=== PATIENT | female | born 1950 | race Caucasian/White ===

== ENCOUNTER 2017-09-23 12:35 | Emergency (ER) | payer MEDICARE, MEDICAID ==
[~2017-09-23] VITALS: Ht 170.2 cm; Wt 108.2 kg
[2017-09-23 13:13] VITALS: BP 153/95
== END 2017-09-23 13:14 | disposition home or self-care (01) ==
LOC: ER 12:36
DX: M19.072 Primary osteoarthritis, left ankle and foot (principal); Z88.5 Allergy status to narcotic agent
CPT/HCPCS: 73610; 99284

== ENCOUNTER 2017-12-15 14:16 | Emergency (ER) | payer MEDICARE, MEDICAID ==
[~2017-12-15] VITALS: Ht 170.2 cm; Wt 105.0 kg
[2017-12-15 14:50] LABS: BASOPHILS % (AUTO) 0.2 % (0-1); EOSINOPHILS # (AUTO) 0.1 X10'3 (0-0.9); EOSINOPHILS % (AUTO) 1.5 % (0-6); HEMATOCRIT 40.2 % (35.0-45.0); HEMOGLOBIN 13.9 g/dl (12.0-16.0); LYMPHOCYTES # (AUTO) 1.8 X10'3 (1.1-4.8); LYMPHOCYTES % (AUTO) 32.2 % (21-51); MEAN CORPUSCULAR HEMOGLOBIN 31.9 PG (27.0-31.0); MEAN CORPUSCULAR HGB CONC 34.6 % (33.0-36.5); MEAN CORPUSCULAR VOLUME 92.1 FL (78-98); MEAN PLATELET VOLUME 6.7 FL (7.4-10.4); MONOCYTES # (AUTO) 0.3 X10'3 (0-0.9); MONOCYTES % (AUTO) 6.1 % (2-12); NEUTROPHILS # (AUTO) 3.4 X10'3 (1.8-7.7); PLATELET COUNT 278 X10'3 (140-440); RED BLOOD COUNT 4.36 X10'6 (4.20-5.60); RED CELL DISTRIBUTION WIDTH 14.3 % (11.5-14.5); WHITE BLOOD COUNT 5.6 X10'3 (4.5-11.0)
[2017-12-15 15:00] LABS: PARTIAL THROMBOPLASTIN TIME 25 SECONDS (22-32); PROTHROMBIN TIME 9.9 SECONDS (9.0-12.0)
[2017-12-15 15:06] LABS: ALANINE AMINOTRANSFERASE 33 U/L (12-78); ALKALINE PHOSPHATASE 69 IU/L (46-116); ANION GAP 11 (8-16); ASPARTATE AMINO TRANSFERASE 18 U/L (10-37); BILIRUBIN,TOTAL 0.7 MG/DL (0.1-1.0); BLOOD UREA NITROGEN 13 MG/DL (7-18); BUN/CREATININE RATIO 17.1 (6.6-38.0); CALCIUM 9.4 MG/DL (8.5-10.1); CHLORIDE 104 MMOL/L (99-107); CREATININE 0.76 MG/DL (0.40-0.90); GLUCOSE 94 MG/DL (70-104); POTASSIUM 3.5 MMOL/L (3.5-5.1); SODIUM 141 MMOL/L (135-145); TOTAL CARBON DIOXIDE 25.7 MMOL/L (24-32); TOTAL PROTEIN 7.9 G/DL (6.4-8.2); eGFR 76 ML/MIN
[2017-12-15] MEDS ORDERED: metoprolol succinate 25mg (24-HOUR) SR. Tablet PO STA (15:42)
[2017-12-15] MEDS ORDERED: normal saline 1000ml 1,000 ML IV SCH (15:45)
[2017-12-15] MEDS ORDERED: diltiazem 5mg/ml 5ml inj. IV ONE (15:45)
[2017-12-15] MEDS ORDERED: metoprolol tartrate 1mg/ml inj IV ONE ×2 (16:50→17:40)
[2017-12-15] MEDS ORDERED: DILTIAZEM IV ONE ×2 (16:55→17:45)
[2017-12-15 18:10] VITALS: BP 126/71
== END 2017-12-15 18:11 | disposition home or self-care (01) ==
LOC: ER 14:17
DX: I48.91 Unspecified atrial fibrillation (principal); I11.0 Hypertensive heart disease with heart failure; I50.9 Heart failure, unspecified; I25.10 Atherosclerotic heart disease of native coronary artery without angina pectoris; I25.2 Old myocardial infarction; J45.909 Unspecified asthma, uncomplicated; M19.90 Unspecified osteoarthritis, unspecified site; Z86.73 Personal history of transient ischemic attack (TIA), and cerebral infarction without residual deficits; Z88.5 Allergy status to narcotic agent; Z87.891 Personal history of nicotine dependence
CPT/HCPCS: 36415; 71045; 80053; 83880; 84484; 85025; 85610; 85730; 93005; 96361; 96374; 99285; J7030

== ENCOUNTER 2018-12-25 11:10 | Inpatient (IN) | payer MEDICARE, MEDICAID ==
[~2018-12-25] VITALS: Ht 167.6 cm; Wt 109.0 kg
--- NOTE | 2018-12-25 11:19 | NUR ---
PT TO CT.
--- NOTE | 2018-12-25 11:34 | NUR ---
PER DR. HERRON STROKE ALERT LEVEL 2.
--- NOTE | 2018-12-25 11:34 | NUR ---
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
--- NOTE | 2018-12-25 11:46 | NUR ---
PATIENT BACK IN ROOM.
--- NOTE | 2018-12-25 12:08 | NUR ---
tele neuro consult per Dr. mendoza.Carmen guajardo.
[2018-12-25 12:12] LABS: BASOPHILS % (AUTO) 0.5 % (0-1); EOSINOPHILS % (AUTO) 0.5 % (0-6); HEMATOCRIT 39.5 % (35.0-45.0); HEMOGLOBIN 13.4 g/dl (12.0-16.0); LYMPHOCYTES # (AUTO) 1.3 X10'3 (1.1-4.8); LYMPHOCYTES % (AUTO) 26.9 % (21-51); MEAN CORPUSCULAR HEMOGLOBIN 31.8 PG (27.0-31.0); MEAN CORPUSCULAR HGB CONC 33.9 g/dL (33.0-36.5); MEAN CORPUSCULAR VOLUME 93.9 FL (78-98); MEAN PLATELET VOLUME 6.9 FL (7.4-10.4); MONOCYTES # (AUTO) 0.4 X10'3 (0-0.9); MONOCYTES % (AUTO) 8.2 % (2-12); NEUTROPHILS # (AUTO) 3.1 X10'3 (1.8-7.7); NEUTROPHILS % (AUTO) 63.9 % (42-75); PLATELET COUNT 287 X10'3 (140-440); RED BLOOD COUNT 4.21 X10'6 (4.20-5.60); RED CELL DISTRIBUTION WIDTH 13.6 % (11.5-14.5); WHITE BLOOD COUNT 4.9 X10'3 (4.5-11.0)
[2018-12-25] MEDS ORDERED: CARB200T8 PO (12:13)
[2018-12-25] MEDS ORDERED: PRAV40TA3 PO (12:13)
[2018-12-25] MEDS ORDERED: BACL20TA PO (12:13)
[2018-12-25] MEDS ORDERED: DIVA-76 PO ×2 (12:13)
[2018-12-25] MEDS ORDERED: METO50TA16 PO (12:13)
[2018-12-25] MEDS ORDERED: ISOS60TA4 PO (12:13)
[2018-12-25] MEDS ORDERED: POTA8TAB8 PO (12:13)
[2018-12-25] MEDS ORDERED: APIX5TAB3 PO (12:13)
[2018-12-25 12:16] LABS: PARTIAL THROMBOPLASTIN TIME 26 SECONDS (22-32)
[2018-12-25 12:22] LABS: ALANINE AMINOTRANSFERASE 23 U/L (12-78); ALBUMIN 3.6 G/DL (3.4-5.0); ALKALINE PHOSPHATASE 71 IU/L (46-116); ANION GAP 9 (8-16); ASPARTATE AMINO TRANSFERASE 13 U/L (10-37); BILIRUBIN,TOTAL 0.7 MG/DL (0.1-1.0); BLOOD UREA NITROGEN 19 MG/DL (7-18); BUN/CREATININE RATIO 27.1 (6.6-38.0); CALCIUM 9.4 MG/DL (8.5-10.1); CHLORIDE 107 MMOL/L (99-107); GLUCOSE 99 MG/DL (70-104); POTASSIUM 3.3 MMOL/L (3.5-5.1); SODIUM 141 MMOL/L (135-145); TOTAL CARBON DIOXIDE 25.3 MMOL/L (24-32); TOTAL PROTEIN 7.2 G/DL (6.4-8.2); eGFR 83 ML/MIN
[2018-12-25] MEDS ORDERED: CARB200T PO (12:23)
[2018-12-25 12:30] LABS: ETHANOL < 0.010 GM/DL (0.0-0.010); MAGNESIUM 1.9 MG/DL (1.5-2.4); PHOSPHORUS 3.1 MG/DL (2.3-4.5); TROPONIN I < 0.04 NG/ML (0.0-0.05)
[2018-12-25] MEDS ORDERED: iohexol 350MG/ML 100ml bottle IV ONE (12:36)
[2018-12-25 13:09] LABS: URINE AMPHETAMINE SCREEN NEGATIVE (Neg); URINE BARBITUATE SCREEN NEGATIVE (Neg); URINE BENZODIAZEPINES SCREEN NEGATIVE (Neg); URINE CANNABINOID SCREEN NEGATIVE (Neg); URINE COCAINE SCREEN NEGATIVE (Neg); URINE METHADONE SCREEN NEGATIVE (Neg); URINE OPIATE SCREEN NEGATIVE (Neg); URINE PHENCYCLIDINE SCREEN NEGATIVE (Neg)
[2018-12-25] MEDS ORDERED: potassium Cl 40MEQ/NS 500ml 500 ML IV PRN ×2 (14:00)
[2018-12-25] MEDS ORDERED: ondansetron/PF 4mg/2ml inj IV PRN (14:00)
[2018-12-25] MEDS ORDERED: morphine 2 MG/ML inj. syringe IV PRN ×2 (14:00)
[2018-12-25] MEDS ORDERED: potassium Cl 20 mEq SR tablet PO PRN (14:00)
[2018-12-25] MEDS ORDERED: magnesium Cl slow-release 64mg tablet PO PRN (14:00)
[2018-12-25] MEDS ORDERED: mag hydrox/Alum hydrox/simeth 30ml oral suspension PO PRN (14:00)
[2018-12-25] MEDS ORDERED: magnesium 4gm in 100ml NS 100 ML IV PRN (14:00)
[2018-12-25] MEDS ORDERED: acetaminophen 325mg tablet PO PRN ×2 (14:00)
[2018-12-25] MEDS ORDERED: magnesium 2GM in 50ml NS 50 ML IV PRN (14:00)
[2018-12-25] MEDS ORDERED: HYDROcodone/acetaminophen 5mg/325mg tablet PO PRN (14:00)
[2018-12-25 14:04] LABS: CLARITY,URINE SLIGHTLY CLOUDY (Clear); COLOR,URINE YELLOW (Yellow); GLUCOSE, URINE NEGATIVE (Neg); KETONES,URINE NEGATIVE (Neg); LEUKOCYTE ESTERASE ,URINE MODERATE (Neg); NITRITES, URINE POSITIVE (Neg); OCCULT BLOOD,URINE TRACE-INTACT (Neg); PROTEIN,URINE NEGATIVE (Neg); UROBILINOGEN,URINE 0.2 E.U/dL (0.2-1.0)
[2018-12-25 14:09] LABS: UA COLLECTION TYPE CLN CATCH MIDSTREAM
[2018-12-25 14:10] LABS: BACTERIA,URINE 4+ /HPF (Neg); MUCUS STRANDS FEW /LPF (Neg); RBC,URINE 0-2 /HPF (0-2); SQUAMOUS EPITHELIAL CELL,UR FEW /LPF (FEW)
[2018-12-25 14:29] LABS: VALPROATE < 3.0 UG/ML (50-100)
[2018-12-25 14:30] LABS: CARBAMAZEPINE (TEGRETOL) < 0.5 UG/ML (4.0-12.0)
[2018-12-25] MEDS: normal saline 1000ml 1,000 ML IV SCH ×2 (14:35→23:58)
[2018-12-25 14:39] LABS: D-DIMER 0.24 MG/L FEU (0-0.50)
[2018-12-25 15:30] VITALS: BP 170/84
[2018-12-25 17:00] VITALS: BP 160/91
[2018-12-25] MEDS: potassium Cl 20 mEq SR tablet PO PRN ×2 (17:21→20:37)
--- NOTE | 2018-12-25 18:30 | NUR ---
Patient in room [facility] 4021. I have received report from CATRACHO Stark and had the opportunity to ask questions and assume patient care.
--- NOTE | 2018-12-25 18:30 | NUR ---
Patient in room [facility] 4021. I have received report from CATRACHO Stark and had the opportunity to ask questions and assume patient care. Ordered patient a tray for dinner.
--- NOTE | 2018-12-25 18:33 | NUR ---
I gave Naty Madrigal RN report.
[2018-12-25] MEDS: carBAMazepine 100mg chewable tablet PO SCH (20:33)
[2018-12-25] MEDS: CefTRIAXone 2gm/D5W 50ml 50 ML IV SCH (20:33)
[2018-12-25] MEDS: apixaban 5mg tablet PO SCH (20:33)
[2018-12-25] MEDS: docusate sod 100mg capsule PO SCH (20:33)
[2018-12-25] MEDS: metoprolol tartrate 50mg tablet PO SCH (20:33)
[2018-12-25] MEDS: divalproex sodium 500mg tablet.DR PO SCH (20:34)
[2018-12-25 22:00] VITALS: BP 143/76
--- NOTE | 2018-12-26 00:55 | NUR ---
reviewed and edited SRN assessment.
[2018-12-26 02:59] VITALS: BP 131/79
[2018-12-26 06:00] VITALS: BP 150/100
--- NOTE | 2018-12-26 06:07 | NUR ---
Problems reprioritized. Patient report given, questions answered & plan of care reviewed with CATRACHO SANHCEZ.
[2018-12-26 06:11] LABS: BASOPHILS % (AUTO) 0.4 % (0-1); EOSINOPHILS # (AUTO) 0.1 X10'3 (0-0.9); EOSINOPHILS % (AUTO) 0.9 % (0-6); HEMATOCRIT 35.1 % (35.0-45.0); HEMOGLOBIN 11.9 g/dl (12.0-16.0); LYMPHOCYTES # (AUTO) 1.9 X10'3 (1.1-4.8); MEAN CORPUSCULAR HEMOGLOBIN 31.9 PG (27.0-31.0); MEAN CORPUSCULAR VOLUME 93.9 FL (78-98); MEAN PLATELET VOLUME 7.2 FL (7.4-10.4); MONOCYTES # (AUTO) 0.5 X10'3 (0-0.9); MONOCYTES % (AUTO) 7.9 % (2-12); NEUTROPHILS # (AUTO) 4.4 X10'3 (1.8-7.7); NEUTROPHILS % (AUTO) 63.8 % (42-75); PLATELET COUNT 270 X10'3 (140-440); RED BLOOD COUNT 3.74 X10'6 (4.20-5.60); RED CELL DISTRIBUTION WIDTH 13.7 % (11.5-14.5); WHITE BLOOD COUNT 6.9 X10'3 (4.5-11.0)
--- NOTE | 2018-12-26 06:15 | NUR ---
Patient in room [facility]TH[facility] 4021. I have received report from Naty Madrigal RN and had the opportunity to ask questions and assume patient care.
[2018-12-26 06:35] LABS: ALANINE AMINOTRANSFERASE 18 U/L (12-78); ALBUMIN 3.1 G/DL (3.4-5.0); ALKALINE PHOSPHATASE 61 IU/L (46-116); ANION GAP 8 (8-16); ASPARTATE AMINO TRANSFERASE 11 U/L (10-37); BILIRUBIN,TOTAL 0.5 MG/DL (0.1-1.0); BLOOD UREA NITROGEN 15 MG/DL (7-18); BUN/CREATININE RATIO 21.4 (6.6-38.0); CALCIUM 8.8 MG/DL (8.5-10.1); CHLORIDE 108 MMOL/L (99-107); CHOL/HDL RATIO 5.1 (0.00-4.99); CHOLESTEROL 248 MG/DL (0-200); GLUCOSE 94 MG/DL (70-104); HDL CHOLESTEROL 49 MG/DL (35-60); LDL CHOLESTEROL 183 MG/DL (50-100); MAGNESIUM 1.9 MG/DL (1.5-2.4); POTASSIUM 3.6 MMOL/L (3.5-5.1); SODIUM 141 MMOL/L (135-145); TOTAL CARBON DIOXIDE 24.7 MMOL/L (24-32); TOTAL PROTEIN 6.3 G/DL (6.4-8.2); TRIGLYCERIDES 85 MG/DL (20-135); eGFR 83 ML/MIN
[2018-12-26] MEDS: HYDROcodone/acetaminophen 10/325mg tab PO PRN ×2 (06:38→17:19)
[2018-12-26 08:00] VITALS: BP_SYST 152; BP_SYST 162; BP_SYST 167; BP_DIAS 77; BP_DIAS 91; BP_DIAS 92
[2018-12-26] MEDS: K and/or MAG REPLACEMENT MC SCH (08:00)
[2018-12-26] MEDS ORDERED: non-formulary drug (Isosorbide Mononitrate (Isosorbide Mononitrate Er) 1 TAB) PO SCH (08:00)
[2018-12-26] MEDS ORDERED: CefTRIAXone 2gm/D5W 50ml 50 ML IV SCH (08:00)
[2018-12-26] MEDS: docusate sod 100mg capsule PO SCH ×2 (08:19→20:13)
[2018-12-26] MEDS: apixaban 5mg tablet PO SCH ×2 (08:19→20:13)
[2018-12-26] MEDS: divalproex sodium 500mg tablet.DR PO SCH ×2 (08:19→20:13)
[2018-12-26] MEDS: metoprolol tartrate 50mg tablet PO SCH ×2 (08:20→20:12)
[2018-12-26] MEDS: potassium chloride 8mEq ER tablet PO SCH (08:20)
[2018-12-26] MEDS: carBAMazepine 100mg chewable tablet PO SCH ×2 (08:20→20:12)
[2018-12-26] MEDS: isosorbide mononitrate 30mg tab.SR.24H PO SCH (08:20)
[2018-12-26] MEDS: pravastatin 40mg tablet PO SCH (08:21)
[2018-12-26] MEDS: CefTRIAXone 2gm/D5W 50ml 50 ML IV SCH (08:21)
[2018-12-26] MEDS ORDERED: pneumococcal 23-VAL P-sac vacc 25 mcg/0.5ml vial IMVAC ONE (10:30)
[2018-12-26] MEDS ORDERED: LORazepam 2 mg/ml vial IM ONE (10:35)
[2018-12-26] MEDS ORDERED: LORazepam 2 mg/ml vial IV ONE (10:50)
[2018-12-26] MEDS: normal saline 1000ml 1,000 ML IV SCH ×2 (17:18→19:58)
[2018-12-26 18:00] VITALS: BP 115/82
--- NOTE | 2018-12-26 18:15 | NUR ---
Problems reprioritized. Patient report given, questions answered & plan of care reviewed with Naty Madrigal RN.
[2018-12-26 20:00] VITALS: BP_SYST 131; BP_SYST 134; BP_SYST 146; BP_DIAS 66; BP_DIAS 76; BP_DIAS 80
[2018-12-26 22:00] VITALS: BP 100/59
[2018-12-27] VITALS (7 sets, daily range): BP systolic 123–148; BP diastolic 75–83
[2018-12-27] MEDS: normal saline 1000ml 1,000 ML IV SCH ×2 (02:29→15:49)
--- NOTE | 2018-12-27 06:00 | NUR ---
reviewed and agree with SRN assessment.
[2018-12-27 06:05] LABS: BASOPHILS # (AUTO) 0.1 X10'3 (0-0.2); EOSINOPHILS # (AUTO) 0.1 X10'3 (0-0.9); EOSINOPHILS % (AUTO) 1.5 % (0-6); HEMATOCRIT 32.6 % (35.0-45.0); HEMOGLOBIN 11.2 g/dl (12.0-16.0); LYMPHOCYTES # (AUTO) 2.1 X10'3 (1.1-4.8); LYMPHOCYTES % (AUTO) 39.4 % (21-51); MEAN CORPUSCULAR HEMOGLOBIN 32.3 PG (27.0-31.0); MEAN CORPUSCULAR HGB CONC 34.3 g/dL (33.0-36.5); MEAN CORPUSCULAR VOLUME 94.1 FL (78-98); MEAN PLATELET VOLUME 7.2 FL (7.4-10.4); MONOCYTES # (AUTO) 0.4 X10'3 (0-0.9); MONOCYTES % (AUTO) 7.7 % (2-12); NEUTROPHILS # (AUTO) 2.7 X10'3 (1.8-7.7); NEUTROPHILS % (AUTO) 50.4 % (42-75); PLATELET COUNT 243 X10'3 (140-440); RED BLOOD COUNT 3.46 X10'6 (4.20-5.60); RED CELL DISTRIBUTION WIDTH 13.8 % (11.5-14.5); WHITE BLOOD COUNT 5.4 X10'3 (4.5-11.0)
[2018-12-27 06:27] LABS: ALANINE AMINOTRANSFERASE 17 U/L (12-78); ALBUMIN 2.9 G/DL (3.4-5.0); ALBUMIN/GLOBULIN RATIO 0.9 (1.1-1.5); ALKALINE PHOSPHATASE 56 IU/L (46-116); ANION GAP 6 (8-16); ASPARTATE AMINO TRANSFERASE 10 U/L (10-37); BILIRUBIN,TOTAL 0.4 MG/DL (0.1-1.0); BLOOD UREA NITROGEN 15 MG/DL (7-18); BUN/CREATININE RATIO 20.8 (6.6-38.0); CALCIUM 8.5 MG/DL (8.5-10.1); CHLORIDE 107 MMOL/L (99-107); CREATININE 0.72 MG/DL (0.40-0.90); GLUCOSE 84 MG/DL (70-104); MAGNESIUM 1.8 MG/DL (1.5-2.4); POTASSIUM 3.8 MMOL/L (3.5-5.1); SODIUM 138 MMOL/L (135-145); TOTAL CARBON DIOXIDE 24.6 MMOL/L (24-32); TOTAL PROTEIN 6.1 G/DL (6.4-8.2); eGFR 80 ML/MIN
[2018-12-27] MEDS: HYDROcodone/acetaminophen 10/325mg tab PO PRN ×2 (06:51→15:46)
[2018-12-27] MEDS: K and/or MAG REPLACEMENT MC SCH (08:00)
[2018-12-27] MEDS: CefTRIAXone 2gm/D5W 50ml 50 ML IV SCH (10:37)
[2018-12-27] MEDS: isosorbide mononitrate 30mg tab.SR.24H PO SCH (10:43)
[2018-12-27] MEDS: divalproex sodium 500mg tablet.DR PO SCH ×2 (10:43→21:57)
[2018-12-27] MEDS: docusate sod 100mg capsule PO SCH ×2 (10:43→21:56)
[2018-12-27] MEDS: apixaban 5mg tablet PO SCH ×2 (10:43→21:56)
[2018-12-27] MEDS: potassium chloride 8mEq ER tablet PO SCH (10:44)
[2018-12-27] MEDS: metoprolol tartrate 50mg tablet PO SCH ×2 (10:44→21:57)
[2018-12-27] MEDS: pravastatin 40mg tablet PO SCH (10:44)
[2018-12-27] MEDS: carBAMazepine 100mg chewable tablet PO SCH ×2 (10:45→21:58)
[2018-12-27] MEDS: levoFLOXACIN-Levaquin 500mg/D5 100 ML IV SCH (15:46)
--- NOTE | 2018-12-27 18:25 | NUR ---
Problems reprioritized. Patient report given, questions answered & plan of care reviewed with CATRACHO Zavala.
--- NOTE | 2018-12-27 18:28 | NUR ---
Patient in room [facility]TH[facility] 4021. I have received report from MARION HAYDEN and had the opportunity to ask questions and assume patient care.
[2018-12-27] MEDS: lactobacillus rhamnosus 10,000 MMU CELLS/CAPSULE PO SCH (21:57)
[2018-12-28] MEDS: normal saline 1000ml 1,000 ML IV SCH (01:58)
[2018-12-28 06:00] VITALS: BP 134/67
--- NOTE | 2018-12-28 06:15 | NUR ---
Problems reprioritized. Patient report given, questions answered & plan of care reviewed with MARION HAYDEN.
[2018-12-28 06:27] LABS: BASOPHILS % (AUTO) 0.6 % (0-1); EOSINOPHILS # (AUTO) 0.1 X10'3 (0-0.9); EOSINOPHILS % (AUTO) 1.4 % (0-6); HEMATOCRIT 31.5 % (35.0-45.0); HEMOGLOBIN 10.7 g/dl (12.0-16.0); LYMPHOCYTES # (AUTO) 1.6 X10'3 (1.1-4.8); LYMPHOCYTES % (AUTO) 35.9 % (21-51); MEAN CORPUSCULAR HEMOGLOBIN 32.1 PG (27.0-31.0); MEAN CORPUSCULAR VOLUME 94.5 FL (78-98); MEAN PLATELET VOLUME 7.3 FL (7.4-10.4); MONOCYTES # (AUTO) 0.3 X10'3 (0-0.9); MONOCYTES % (AUTO) 7.4 % (2-12); NEUTROPHILS # (AUTO) 2.4 X10'3 (1.8-7.7); NEUTROPHILS % (AUTO) 54.7 % (42-75); PLATELET COUNT 222 X10'3 (140-440); RED BLOOD COUNT 3.33 X10'6 (4.20-5.60); RED CELL DISTRIBUTION WIDTH 13.5 % (11.5-14.5); WHITE BLOOD COUNT 4.3 X10'3 (4.5-11.0)
[2018-12-28 06:41] LABS: ALANINE AMINOTRANSFERASE 17 U/L (12-78); ALBUMIN 2.9 G/DL (3.4-5.0); ALBUMIN/GLOBULIN RATIO 0.9 (1.1-1.5); ALKALINE PHOSPHATASE 58 IU/L (46-116); ANION GAP 11 (8-16); ASPARTATE AMINO TRANSFERASE 10 U/L (10-37); BILIRUBIN,TOTAL 0.4 MG/DL (0.1-1.0); BLOOD UREA NITROGEN 13 MG/DL (7-18); BUN/CREATININE RATIO 18.6 (6.6-38.0); CALCIUM 8.6 MG/DL (8.5-10.1); CHLORIDE 106 MMOL/L (99-107); GLUCOSE 79 MG/DL (70-104); MAGNESIUM 1.8 MG/DL (1.5-2.4); POTASSIUM 3.8 MMOL/L (3.5-5.1); SODIUM 140 MMOL/L (135-145); TOTAL CARBON DIOXIDE 23.4 MMOL/L (24-32); eGFR 83 ML/MIN
[2018-12-28] MEDS: K and/or MAG REPLACEMENT MC SCH (08:00)
[2018-12-28] MEDS: docusate sod 100mg capsule PO SCH (09:16)
[2018-12-28] MEDS: lactobacillus rhamnosus 10,000 MMU CELLS/CAPSULE PO SCH (09:16)
[2018-12-28] MEDS: divalproex sodium 500mg tablet.DR PO SCH (09:16)
[2018-12-28] MEDS: levoFLOXACIN-Levaquin 500mg/D5 100 ML IV SCH (09:16)
[2018-12-28] MEDS: apixaban 5mg tablet PO SCH (09:17)
[2018-12-28] MEDS: potassium chloride 8mEq ER tablet PO SCH (09:17)
[2018-12-28] MEDS: isosorbide mononitrate 30mg tab.SR.24H PO SCH (09:17)
[2018-12-28] MEDS: metoprolol tartrate 50mg tablet PO SCH (09:25)
[2018-12-28] MEDS: pravastatin 40mg tablet PO SCH (09:25)
[2018-12-28] MEDS: carBAMazepine 100mg chewable tablet PO SCH (09:26)
[2018-12-28] MEDS: HYDROcodone/acetaminophen 10/325mg tab PO PRN (09:27)
[2018-12-28 10:00] VITALS: BP 135/78
[2018-12-28] MEDS ORDERED: LEVO500T2 PO (11:39)
--- NOTE | 2018-12-28 13:30 | NUR ---
Received discharge orders from Dr. Stoner for pt to be discharged to home. IV LFA discontinued with cannula intact. Bandaid applied over site. Discharge medications called to pts Pharm[facility] by Saad Shahid RN. Reviewed discharge orders with pt and her daughter. Discharged via w/c to front lobby to a private vehicle with pts daughter.
[2018-12-29] MEDS ORDERED: levoFLOXACIN 500mg tablet PO SCH (11:00)
== END 2018-12-28 13:30 | disposition home health service (06) | DRG 690 ==
LOC: ER 11:10 → ORTHO 4S 15:47 → CMPBEDREQ 19:03
PROVIDERS: ADMIT Internal Medicine; ATTEND Internal Medicine
DX: N39.0 Urinary tract infection, site not specified (principal); I48.2 Chronic atrial fibrillation; E87.6 Hypokalemia; B95.1 Streptococcus, group B, as the cause of diseases classified elsewhere; B96.20 Unspecified Escherichia coli [E. coli] as the cause of diseases classified elsewhere; I25.10 Atherosclerotic heart disease of native coronary artery without angina pectoris; R42 Dizziness and giddiness; M19.90 Unspecified osteoarthritis, unspecified site; I11.0 Hypertensive heart disease with heart failure; I50.9 Heart failure, unspecified; J45.909 Unspecified asthma, uncomplicated; I25.2 Old myocardial infarction; Z90.11 Acquired absence of right breast and nipple; Z91.14 Patient's other noncompliance with medication regimen; Z88.6 Allergy status to analgesic agent; Z79.01 Long term (current) use of anticoagulants; Z87.891 Personal history of nicotine dependence; Z85.3 Personal history of malignant neoplasm of breast; Z86.73 Personal history of transient ischemic attack (TIA), and cerebral infarction without residual deficits
CPT/HCPCS: 36415; 70450; 70551; 71045; 73502; 73700; 80053; 80061; 80156; 80164; 80305; 80320; 81001; 82948; 83735; 84100; 84443; 84484; 85025; 85379; 85610; 85730; 87070; 87077; 87088; 87186; 90732; 92508; 92616; 93005; 93306; 93880; 97116; 97161; 97530; 99285; G0378; J0696; J1956; J2060; J2270; J7030; Q9967

== ENCOUNTER 2019-06-15 17:05 | Inpatient (IN) | payer MEDICARE, MEDICAID ==
[~2019-06-15] VITALS: Ht 180.3 cm; Wt 106.0 kg
[~2019-06-15 17:05] MED LIST: APIX5TAB3 PO; BACL20TA PO; CARB200T PO; CARB200T8 PO; DIVA-76 PO; ISOS60TA4 PO; METO50TA16 PO; POTA8TAB8 PO; PRAV40TA3 PO
[2019-06-15] MEDS ORDERED: aspirin 81mg tab.chew PO ONE (17:15)
[2019-06-15 17:33] LABS: BASOPHILS % (AUTO) 0.6 % (0-1); EOSINOPHILS % (AUTO) 0.6 % (0-6); HEMATOCRIT 35.8 % (35.0-45.0); HEMOGLOBIN 12.3 g/dl (12.0-16.0); LYMPHOCYTES # (AUTO) 1.4 X10'3 (1.1-4.8); LYMPHOCYTES % (AUTO) 27.1 % (21-51); MEAN CORPUSCULAR HEMOGLOBIN 32.6 PG (27.0-31.0); MEAN CORPUSCULAR HGB CONC 34.4 g/dL (33.0-36.5); MEAN CORPUSCULAR VOLUME 94.7 FL (78-98); MEAN PLATELET VOLUME 6.9 FL (7.4-10.4); MONOCYTES # (AUTO) 0.4 X10'3 (0-0.9); MONOCYTES % (AUTO) 8.2 % (2-12); NEUTROPHILS # (AUTO) 3.3 X10'3 (1.8-7.7); NEUTROPHILS % (AUTO) 63.5 % (42-75); PLATELET COUNT 218 X10'3 (140-440); RED BLOOD COUNT 3.78 X10'6 (4.20-5.60); RED CELL DISTRIBUTION WIDTH 13.4 % (11.5-14.5); WHITE BLOOD COUNT 5.2 X10'3 (4.5-11.0)
--- NOTE | 2019-06-15 17:39 | NUR ---
PT TO CT
[2019-06-15 17:44] LABS: PARTIAL THROMBOPLASTIN TIME 28 SECONDS (22-32)
[2019-06-15 17:51] LABS: ALANINE AMINOTRANSFERASE 17 U/L (12-78); ALBUMIN 2.9 G/DL (3.4-5.0); ALBUMIN/GLOBULIN RATIO 0.9 (1.1-1.5); ALKALINE PHOSPHATASE 58 IU/L (46-116); ANION GAP 9 (8-16); ASPARTATE AMINO TRANSFERASE 12 U/L (10-37); BILIRUBIN,TOTAL 0.2 MG/DL (0.1-1.0); BLOOD UREA NITROGEN 12 MG/DL (7-18); BUN/CREATININE RATIO 19.4 (6.6-38.0); CALCIUM 7.6 MG/DL (8.5-10.1); CHLORIDE 107 MMOL/L (99-107); CREATININE 0.62 MG/DL (0.40-0.90); GLUCOSE 100 MG/DL (70-104); POTASSIUM 3.3 MMOL/L (3.5-5.1); SODIUM 138 MMOL/L (135-145); TOTAL PROTEIN 6.2 G/DL (6.4-8.2); eGFR > 90 ML/MIN
--- NOTE | 2019-06-15 18:00 | NUR ---
PT'S AT BEDSIDE
[2019-06-15] MEDS ORDERED: iohexol 350MG/ML 100ml bottle IV ONE (18:21)
--- NOTE | 2019-06-15 18:24 | NUR ---
TELE LNEURO CONSULT COMPLETED.
--- NOTE | 2019-06-15 18:33 | NUR ---
PT GOING BACK TO CT.
[2019-06-15] MEDS ORDERED: CARB200T PO (18:44)
[2019-06-15 19:07] LABS: VALPROATE 30 UG/ML (50-100)
[2019-06-15 19:12] LABS: CARBAMAZEPINE (TEGRETOL) 0.5 UG/ML (4.0-12.0)
[2019-06-15] MEDS ORDERED: mag hydrox/Alum hydrox/simeth 30ml oral suspension PO PRN (19:45)
[2019-06-15] MEDS ORDERED: potassium Cl 20 mEq SR tablet PO PRN ×2 (19:45)
[2019-06-15] MEDS ORDERED: magnesium 4gm in 100ml NS 100 ML IV PRN (19:45)
[2019-06-15] MEDS ORDERED: normal saline 1000ml 1,000 ML IV ONE (19:45)
[2019-06-15] MEDS ORDERED: potassium CL 10mEq/100ml bag 100 ML IV PRN ×2 (19:45)
[2019-06-15] MEDS ORDERED: magnesium Cl slow-release 64mg tablet PO PRN (19:45)
[2019-06-15] MEDS ORDERED: magnesium hydroxide 30ml (MOM) UD suspension PO PRN (19:45)
[2019-06-15] MEDS ORDERED: ondansetron/PF 4mg/2ml inj IV PRN (19:45)
[2019-06-15] MEDS ORDERED: acetaminophen 325mg tablet PO PRN (19:45)
[2019-06-15] MEDS ORDERED: magnesium 2GM in 50ml NS 50 ML IV PRN (19:45)
[2019-06-15 20:04] LABS: CHOL/HDL RATIO 5.2 (0.00-4.99); CHOLESTEROL 202 MG/DL (0-200); HDL CHOLESTEROL 39 MG/DL (35-60); LDL CHOLESTEROL 138 MG/DL (50-100); TRIGLYCERIDES 157 MG/DL (20-135)
[2019-06-15] MEDS ORDERED: divalproex sodium 250mg tablet PO ONE (21:15)
[2019-06-15] MEDS ORDERED: carBAMazepine 100mg chewable tablet PO ONE (21:15)
[2019-06-15] MEDS ORDERED: metoprolol tartrate 50mg tablet PO ONE (21:15)
[2019-06-15] MEDS ORDERED: apixaban 5mg tablet PO ONE (21:15)
--- NOTE | 2019-06-15 21:24 | NUR ---
HOME MEDICATIONS TAKEN TO PHARMACY
[2019-06-15 22:30] VITALS: BP 163/95
[2019-06-15] MEDS ORDERED: FLU VACC QS2019-20 36MOS UP/PF 60 MCG/0.5 ML SYRINGE IMVAC ONE (23:45)
[2019-06-16 02:10] VITALS: BP 160/86
[2019-06-16 07:01] LABS: BASOPHILS % (AUTO) 0.6 % (0-1); EOSINOPHILS % (AUTO) 0.9 % (0-6); HEMATOCRIT 36.6 % (35.0-45.0); HEMOGLOBIN 12.5 g/dl (12.0-16.0); LYMPHOCYTES # (AUTO) 1.9 X10'3 (1.1-4.8); LYMPHOCYTES % (AUTO) 37.8 % (21-51); MEAN CORPUSCULAR HEMOGLOBIN 32.6 PG (27.0-31.0); MEAN CORPUSCULAR VOLUME 95.7 FL (78-98); MONOCYTES # (AUTO) 0.4 X10'3 (0-0.9); MONOCYTES % (AUTO) 8.4 % (2-12); NEUTROPHILS # (AUTO) 2.6 X10'3 (1.8-7.7); NEUTROPHILS % (AUTO) 52.3 % (42-75); PLATELET COUNT 223 X10'3 (140-440); RED BLOOD COUNT 3.83 X10'6 (4.20-5.60); RED CELL DISTRIBUTION WIDTH 13.8 % (11.5-14.5); WHITE BLOOD COUNT 5.1 X10'3 (4.5-11.0)
[2019-06-16 07:09] LABS: ALBUMIN 3.2 G/DL (3.4-5.0); ANION GAP 10 (8-16); BLOOD UREA NITROGEN 7 MG/DL (7-18); BUN/CREATININE RATIO 10.3 (6.6-38.0); CALCIUM 9.1 MG/DL (8.5-10.1); CHLORIDE 106 MMOL/L (99-107); CREATININE 0.68 MG/DL (0.40-0.90); GLUCOSE 91 MG/DL (70-104); POTASSIUM 3.8 MMOL/L (3.5-5.1); SODIUM 140 MMOL/L (135-145); TOTAL CARBON DIOXIDE 24.5 MMOL/L (24-32); eGFR 86 ML/MIN
[2019-06-16 07:20] VITALS: BP 165/99
[2019-06-16] MEDS ORDERED: divalproex sodium 500mg tablet.DR PO SCH (08:00)
[2019-06-16] MEDS: metoprolol tartrate 50mg tablet PO SCH ×2 (08:00→19:59)
[2019-06-16 10:00] VITALS: BP 154/87
[2019-06-16] MEDS: pravastatin 40mg tablet PO SCH (10:06)
[2019-06-16] MEDS: apixaban 5mg tablet PO SCH ×2 (10:06→19:59)
[2019-06-16] MEDS: potassium chloride 8mEq ER tablet PO SCH (10:06)
[2019-06-16] MEDS: isosorbide dinitrate 30mg tablet PO SCH (10:21)
[2019-06-16] MEDS: carBAMazepine 100mg chewable tablet PO SCH ×2 (10:22→20:00)
[2019-06-16] MEDS: K and/or MAG REPLACEMENT MC SCH (11:27)
--- NOTE | 2019-06-16 14:38 | NUR ---
PAGER ID: [phone] Dr Gamez MESSAGE: [id number] Cindy Hernandez: Pt is claustrophobic/request Ativan pre MRI. thank you, Ileana [phone]
[2019-06-16] MEDS ORDERED: LORazepam 1 MG tablet PO ONE (15:15)
[2019-06-16] MEDS: atorvastatin 20mg tablet PO SCH (15:42)
[2019-06-16] MEDS ORDERED: FLU VACC QS2019-20 36MOS UP/PF 60 MCG/0.5 ML SYRINGE IMVAC ONE (16:00)
[2019-06-16] MEDS: acetaminophen 325mg tablet PO PRN (17:16)
[2019-06-16 18:00] VITALS: BP 148/92
--- NOTE | 2019-06-16 18:56 | NUR ---
Problems reprioritized. Patient report given, questions answered & plan of care reviewed with Randi. HAYDEN.
--- NOTE | 2019-06-16 18:56 | NUR ---
Patient in room [facility]TH[facility] 4022. I have received report from CATRACHO Tejeda and had the opportunity to ask questions and assume patient care.
[2019-06-16] MEDS: divalproex sodium 500mg tablet.DR PO SCH (21:44)
[2019-06-16] MEDS: baclofen 10mg tablet PO SCH (21:44)
[2019-06-16 22:00] VITALS: BP 129/74
[2019-06-17 02:03] VITALS: BP 138/80
[2019-06-17 06:00] VITALS: BP 136/76
--- NOTE | 2019-06-17 06:37 | NUR ---
Problems reprioritized. Patient report given, questions answered & plan of care reviewed with CATRACHO Moore.
--- NOTE | 2019-06-17 06:48 | NUR ---
Patient in room [facility]TH[facility] 4022. I have received report from Jacey HAYDEN and had the opportunity to ask questions and assume patient care.
[2019-06-17 06:58] LABS: BASOPHILS % (AUTO) 0.5 % (0-1); EOSINOPHILS # (AUTO) 0.1 X10'3 (0-0.9); EOSINOPHILS % (AUTO) 1.1 % (0-6); HEMATOCRIT 36.4 % (35.0-45.0); HEMOGLOBIN 12.7 g/dl (12.0-16.0); LYMPHOCYTES % (AUTO) 43.6 % (21-51); MEAN CORPUSCULAR HEMOGLOBIN 32.6 PG (27.0-31.0); MEAN CORPUSCULAR HGB CONC 34.8 g/dL (33.0-36.5); MEAN CORPUSCULAR VOLUME 93.8 FL (78-98); MEAN PLATELET VOLUME 6.9 FL (7.4-10.4); MONOCYTES # (AUTO) 0.3 X10'3 (0-0.9); MONOCYTES % (AUTO) 7.5 % (2-12); NEUTROPHILS # (AUTO) 2.1 X10'3 (1.8-7.7); NEUTROPHILS % (AUTO) 47.3 % (42-75); PLATELET COUNT 215 X10'3 (140-440); RED BLOOD COUNT 3.88 X10'6 (4.20-5.60); RED CELL DISTRIBUTION WIDTH 13.6 % (11.5-14.5); WHITE BLOOD COUNT 4.5 X10'3 (4.5-11.0)
[2019-06-17 07:13] LABS: ALBUMIN 3.1 G/DL (3.4-5.0); ANION GAP 9 (8-16); BLOOD UREA NITROGEN 15 MG/DL (7-18); BUN/CREATININE RATIO 21.1 (6.6-38.0); CALCIUM 8.5 MG/DL (8.5-10.1); CHLORIDE 105 MMOL/L (99-107); CREATININE 0.71 MG/DL (0.40-0.90); GLUCOSE 83 MG/DL (70-104); MAGNESIUM 1.8 MG/DL (1.5-2.4); SODIUM 139 MMOL/L (135-145); TOTAL CARBON DIOXIDE 25.1 MMOL/L (24-32); eGFR 82 ML/MIN
[2019-06-17] MEDS: isosorbide dinitrate 30mg tablet PO SCH (08:29)
[2019-06-17] MEDS: metoprolol tartrate 50mg tablet PO SCH ×2 (08:29→19:52)
[2019-06-17] MEDS: apixaban 5mg tablet PO SCH ×2 (08:30→19:52)
[2019-06-17] MEDS: carBAMazepine 100mg chewable tablet PO SCH ×2 (08:30→19:50)
[2019-06-17] MEDS: potassium chloride 8mEq ER tablet PO SCH (08:31)
[2019-06-17] MEDS: atorvastatin 20mg tablet PO SCH (08:31)
[2019-06-17] MEDS: pravastatin 40mg tablet PO SCH (08:31)
[2019-06-17] MEDS: divalproex sodium 500mg tablet.DR PO SCH ×2 (08:32→19:52)
[2019-06-17] MEDS: K and/or MAG REPLACEMENT MC SCH (08:32)
[2019-06-17 10:00] VITALS: BP 96/70
[2019-06-17] MEDS ORDERED: FLU VACC QS2019-20 36MOS UP/PF 60 MCG/0.5 ML SYRINGE IMVAC ONE (10:00)
[2019-06-17] MEDS: HYDROcodone/acetaminophen 5mg/325mg tablet PO PRN (12:49)
[2019-06-17 14:00] VITALS: BP 116/49
[2019-06-17] MEDS: acetaminophen 325mg tablet PO PRN (17:47)
[2019-06-17 18:00] VITALS: BP 122/82
--- NOTE | 2019-06-17 18:25 | NUR ---
Problems reprioritized. Patient report given, questions answered & plan of care reviewed with Rajat HAYDEN.
[2019-06-17] MEDS: baclofen 10mg tablet PO SCH (19:51)
[2019-06-17 22:00] VITALS: BP 124/68
--- NOTE | 2019-06-18 04:24 | NUR ---
Notified Dr. Veras regarding what appeared to be mild seizure activity on two occasions while getting patient up to [facility]. Patient back in bed sleeping.
[2019-06-18 06:00] VITALS: BP 151/79
[2019-06-18 06:06] LABS: BASOPHILS % (AUTO) 0.4 % (0-1); EOSINOPHILS % (AUTO) 0.8 % (0-6); HEMATOCRIT 37.6 % (35.0-45.0); HEMOGLOBIN 13.1 g/dl (12.0-16.0); LYMPHOCYTES # (AUTO) 1.9 X10'3 (1.1-4.8); LYMPHOCYTES % (AUTO) 39.4 % (21-51); MEAN CORPUSCULAR HEMOGLOBIN 32.9 PG (27.0-31.0); MEAN CORPUSCULAR HGB CONC 34.9 g/dL (33.0-36.5); MEAN CORPUSCULAR VOLUME 94.3 FL (78-98); MONOCYTES # (AUTO) 0.4 X10'3 (0-0.9); NEUTROPHILS # (AUTO) 2.4 X10'3 (1.8-7.7); NEUTROPHILS % (AUTO) 51.4 % (42-75); PLATELET COUNT 226 X10'3 (140-440); RED BLOOD COUNT 3.99 X10'6 (4.20-5.60); RED CELL DISTRIBUTION WIDTH 13.8 % (11.5-14.5); WHITE BLOOD COUNT 4.7 X10'3 (4.5-11.0)
[2019-06-18 06:44] LABS: ALBUMIN 3.2 G/DL (3.4-5.0); ANION GAP 10 (8-16); BLOOD UREA NITROGEN 20 MG/DL (7-18); BUN/CREATININE RATIO 23.5 (6.6-38.0); CALCIUM 8.9 MG/DL (8.5-10.1); CHLORIDE 102 MMOL/L (99-107); CREATININE 0.85 MG/DL (0.40-0.90); GLUCOSE 83 MG/DL (70-104); MAGNESIUM 2.2 MG/DL (1.5-2.4); POTASSIUM 3.8 MMOL/L (3.5-5.1); SODIUM 137 MMOL/L (135-145); TOTAL CARBON DIOXIDE 25.4 MMOL/L (24-32); eGFR 66 ML/MIN
--- NOTE | 2019-06-18 06:50 | NUR ---
Patient in room [facility]TH[facility] 4022. I have received report from Rajat HAYDEN and had the opportunity to ask questions and assume patient care.
[2019-06-18] MEDS: isosorbide dinitrate 30mg tablet PO SCH (07:33)
[2019-06-18] MEDS: atorvastatin 20mg tablet PO SCH (07:33)
[2019-06-18] MEDS: metoprolol tartrate 50mg tablet PO SCH (07:33)
[2019-06-18] MEDS: apixaban 5mg tablet PO SCH (07:34)
[2019-06-18] MEDS: pravastatin 40mg tablet PO SCH (07:34)
[2019-06-18] MEDS: divalproex sodium 500mg tablet.DR PO SCH (07:34)
[2019-06-18] MEDS: potassium chloride 8mEq ER tablet PO SCH (07:34)
[2019-06-18] MEDS: carBAMazepine 100mg chewable tablet PO SCH (07:35)
[2019-06-18] MEDS: HYDROcodone/acetaminophen 5mg/325mg tablet PO PRN ×2 (07:35→11:08)
[2019-06-18] MEDS: K and/or MAG REPLACEMENT MC SCH (07:36)
[2019-06-18] MEDS ORDERED: DIVA-76 PO (08:27)
[2019-06-18 10:00] VITALS: BP 95/59
--- NOTE | 2019-06-18 14:30 | NUR ---
safe DC with spouse.
== END 2019-06-18 14:45 | disposition home health service (06) | DRG 101 ==
LOC: ER 17:06 → ED HOLD 19:43 → UNDOADMIN 19:43 → ORTHO 4S 21:11 → EDBEDREQ 21:34 → ORTHO 4S 23:25 → ED HOLD 23:25 → CMPBEDREQ 23:35 → OBSVTOIN 06-17 11:10
PROVIDERS: ADMIT Hospitalist; ATTEND Internal Medicine
PROC: B3251ZZ Computerized Tomography (CT Scan) of Bilateral Common Carotid Arteries using Low Osmolar Contrast (ICD-10-PCS; 2019-06-15)
PROC: B32G1ZZ Computerized Tomography (CT Scan) of Bilateral Vertebral Arteries using Low Osmolar Contrast (ICD-10-PCS; 2019-06-15)
PROC: B3281ZZ Computerized Tomography (CT Scan) of Bilateral Internal Carotid Arteries using Low Osmolar Contrast (ICD-10-PCS; 2019-06-15)
PROC: 3E02340 Introduction of Influenza Vaccine into Muscle, Percutaneous Approach (ICD-10-PCS; principal; 2019-06-16)
DX: G40.802 Other epilepsy, not intractable, without status epilepticus (principal); E87.6 Hypokalemia; I25.10 Atherosclerotic heart disease of native coronary artery without angina pectoris; I11.0 Hypertensive heart disease with heart failure; M19.90 Unspecified osteoarthritis, unspecified site; J45.909 Unspecified asthma, uncomplicated; I50.9 Heart failure, unspecified; E78.5 Hyperlipidemia, unspecified; Z79.899 Other long term (current) drug therapy; Z85.3 Personal history of malignant neoplasm of breast; Z23 Encounter for immunization; Z79.01 Long term (current) use of anticoagulants; Z88.5 Allergy status to narcotic agent; Z86.73 Personal history of transient ischemic attack (TIA), and cerebral infarction without residual deficits; I25.2 Old myocardial infarction; Z98.51 Tubal ligation status; Z90.11 Acquired absence of right breast and nipple; Z98.61 Coronary angioplasty status
CPT/HCPCS: 36415; 70450; 70496; 70498; 70553; 71045; 80048; 80053; 80061; 80156; 80164; 83735; 84484; 85025; 85610; 85730; 87081; 90471; 92508; 92616; 93005; 97110; 97112; 97116; 97161; 97530; 99291; G0378; Q2037; Q9967

== ENCOUNTER 2023-04-08 19:04 | Emergency (ER) | payer MEDICARE, MEDICAID ==
[~2023-04-08] VITALS: Ht 170.2 cm; Wt 113.6 kg
[~2023-04-08 19:04] MED LIST changes: -CARB200T8 PO; -ISOS60TA4 PO; +ISOS60TA71 PO; -POTA8TAB8 PO
[2023-04-08 19:28] VITALS: TEMP 98.6
[2023-04-08 19:46] LABS: BASOPHILS % (AUTO) 0.8 % (0-1); EOSINOPHILS # (AUTO) 0.1 X10'3 (0-0.9); EOSINOPHILS % (AUTO) 1.3 % (0-6); HEMATOCRIT 34.1 % (35.0-45.0); HEMOGLOBIN 11.9 g/dl (12.0-16.0); LYMPHOCYTES # (AUTO) 2.3 X10'3 (1.1-4.8); LYMPHOCYTES % (AUTO) 40.8 % (21-51); MEAN CORPUSCULAR HEMOGLOBIN 32.5 PG (27.0-31.0); MEAN CORPUSCULAR HGB CONC 34.7 g/dL (33.0-36.5); MEAN CORPUSCULAR VOLUME 93.5 FL (78-98); MONOCYTES # (AUTO) 0.5 X10'3 (0-0.9); MONOCYTES % (AUTO) 8.5 % (2-12); NEUTROPHILS # (AUTO) 2.8 X10'3 (1.8-7.7); NEUTROPHILS % (AUTO) 48.6 % (42-75); PLATELET COUNT 212 X10'3 (140-440); RED BLOOD COUNT 3.65 X10'6 (4.20-5.60); RED CELL DISTRIBUTION WIDTH 13.7 % (11.5-14.5); WHITE BLOOD COUNT 5.7 X10'3 (4.5-11.0)
[2023-04-08 20:00] LABS: ALANINE AMINOTRANSFERASE 15 U/L (12-78); ALBUMIN 3.4 G/DL (3.4-5.0); ALKALINE PHOSPHATASE 59 IU/L (46-116); ANION GAP 13 (8-16); ASPARTATE AMINO TRANSFERASE 15 U/L (10-37); BILIRUBIN,TOTAL 0.6 MG/DL (0.1-1.0); BLOOD UREA NITROGEN 13 MG/DL (7-18); BUN/CREATININE RATIO 17.3 (10.0-20.0); CALCIUM 9.2 MG/DL (8.5-10.1); CHLORIDE 103 MMOL/L (99-107); CREATININE 0.75 MG/DL (0.40-0.90); GLUCOSE 88 MG/DL (70-104); POTASSIUM 3.4 MMOL/L (3.5-5.1); SODIUM 136 MMOL/L (135-145); TOTAL CARBON DIOXIDE 20.3 MMOL/L (24-32); TOTAL PROTEIN 6.8 G/DL (6.4-8.2); eGFR 76 ML/MIN
[2023-04-08 20:09] LABS: ETHANOL 170 MG/DL (<10)
[2023-04-08] MEDS ORDERED: POTASSIUM BICARB 20meq eff tab 20 MEQ TABLET.EFF PO ONE (21:05)
[2023-04-08] MEDS ORDERED: acetaminophen 325mg tablet PO ONE (21:10)
[2023-04-08] MEDS ORDERED: bacitracin 15gm ointment TP ONE (23:30)
[2023-04-08 23:37] VITALS: BP 185/74; PULSE 90; RESP 16; O2SAT 99
== END 2023-04-08 23:41 | disposition home or self-care (01) ==
LOC: ER 19:05
DX: S00.81XA Abrasion of other part of head, initial encounter (principal); M79.604 Pain in right leg; M25.531 Pain in right wrist; I11.0 Hypertensive heart disease with heart failure; I10 Essential (primary) hypertension; J45.909 Unspecified asthma, uncomplicated; Z90.49 Acquired absence of other specified parts of digestive tract; Z88.5 Allergy status to narcotic agent; Z79.899 Other long term (current) drug therapy; W19.XXXA Unspecified fall, initial encounter; Y93.89 Activity, other specified; Y92.89 Other specified places as the place of occurrence of the external cause; Y99.8 Other external cause status
CPT/HCPCS: 36415; 70450; 71045; 72125; 73110; 73502; 73560; 73610; 80053; 80320; 83880; 84484; 85025; 93005; 99285